=== PATIENT | male | born 1945 | race Two or more races ===

== ENCOUNTER 2023-08-11 21:34 | Observation (INO) | payer MEDICARE, OTHER, SELFPAY ==
[2023-08-11 16:52] VITALS: BP 151/71
[2023-08-11 16:56] VITALS: BP 151/71; BMI 29.7
[2023-08-11 17:00] VITALS: BP 144/69
[2023-08-11 17:19] LABS: % Basophils 0.6 % (0-2); % Eosinophils 1.8 % (0-6); % Immature Granulocytes 0.4 % (0-0.5); % Lymphocytes 18.3 % (20.5-51.1); % Monocytes 9.4 % (1.7-9.3); % Neutrophils 69.5 % (42.2-75.2); Absolute Basophils 0.1 10^3/uL (0-0.2); Absolute Eosinophils 0.2 10^3/uL (0-0.7); Absolute Lymphocytes 1.5 10^3/uL (1.2-3.4); Absolute Monocytes 0.8 10^3/uL (0.1-0.6); Absolute Neutrophils 5.8 10^3/uL (1.4-6.5); Hematocrit 42.7 % (39.0-52.0); Hemoglobin 14.3 g/dL (13.0-18.0); Mean Corp Hgb Conc. 33.5 g/dL (33.0-37.0); Mean Corpuscular Hgb 31.4 pg (27.0-31.0); Mean Corpuscular Volume 93.6 fL (80.0-94.0); Nucleated Red Blood Cells % 0 % (-); Platelet Count 272 10^3/uL (130-400); Red Blood Cell Count 4.56 10^6/uL (4.70-6.10); Red Cell Dist. Width 12.5 % (11.5-14.5); White Blood Cell Count 8.3 10^3/uL (4.8-10.8)
[2023-08-11 17:28] LABS: ALT (SGPT) 21 U/L (0-50); AST (SGOT) 25 U/L (17-59); Albumin 4.4 g/dl (3.5-5.0); Alkaline Phosphatase 79 U/L (38-126); Blood Urea Nitrogen 20 mg/dl (9-20); Calcium 10.3 mg/dl (8.4-10.2); Carbon Dioxide 26 mmol/L (22-30); Chloride 103 mmol/L (98-107); Estimated Creatinine Clearance 49 ml/min; Glucose 134 mg/dl (70-99); Potassium 3.7 mmol/L (3.5-5.1); Sodium 136 mmol/L (135-145); Total Bilirubin 1.7 mg/dl (0.2-1.3); eGFR 56.58
[2023-08-11 17:40] LABS: Troponin I < 0.012 ng/ml
[2023-08-11] MEDS: BENADRYL 25 MG IV (17:48)
[2023-08-11] MEDS: SOLU-CORTEF 200 MG IV (17:49)
--- NOTE | 2023-08-11 17:52 | ED.CVA ---
History of Present Illness
General
Chief Complaint: CVA/TIA Symptoms
Time Seen by Provider: 08/11/23 17:28
Onset of Stroke Symptoms
Onset of symptoms known: Yes
Date of onset of symptoms: 08/11/23
Time of onset of symptoms: 14:30
Travel History
Have you had any contact with someone who has COVID-19?: No
Do you have any symptoms of coronavirus? Fever > 100 degrees, chills, cough, shortness of breath, sore throat, loss of taste or smell, muscle aches, or headache?: No
History of Present Illness
History of Present Illness:
77 yo male w/ hx of CAD s/p ADARSH x 6, HTN, HLD, and multiple prior 'TIAs' presents via EMS for evaluation of an abrupt onset of stroke like symptoms developing at 1430 today. Spouse states that the pt was at home with friends, the friends noted that
he was not able to speak appropriately and seemed to be 'searching for the words'. The symptoms lasted approximately 2 hours before improving. Pt states 'I didn't know something was wrong'. Relays a history of multiple prior 'TIAs' however these
were not all evaluated medically. The most recent of which occurred approx 1 yr ago involving vision loss. He does take clopidogrel for cardiac disease. Currently asymptomatic
Review of Systems
Review of Systems
Allergies reviewed?: Yes
All Other Systems: ROS reviewed and negative except as documented in HPI and ROS
Phy Exam
Physical Exam
Physical Exam:
GEN: Well appearing, NAD, WDWN
HEENT: Oral mucosa moist, no scleral icterus, no nasal congestion
Cardiac: Regular rate
Lung: No respiratory distress, no tachypnea
MSK: No gross deformity or injuries
Skin: Good color, no pallor or jaundice, no rashes
Neuro: AO x3; CN II-XII grossly intact. BUE strength 5/5 in all cordoba, sensation intact and symmetric. BLE strength 5/5 in all cordoba, sensation intact and symmetric
Psych: Calm, cooperative
Course
Orders/Labs/Results
Orders:
Orders
08/11/23 16:58
Electrocardiogram (*1) Urgent
Reason for Study: Other
Other Reason for Exam: Possible Stroke
Cardiac Monitoring- Treatment ONCE
08/11/23 16:59
EKG- Treatment ONCE
08/11/23 17:04
Complete Blood Count/With Diff Urgent
Comprehensive Metabolic Panel Urgent
Troponin I Urgent
08/11/23 17:40
CT Head & Neck Angio W/wo IV Urgent
Comment:
Reason For Exam: TIA, aphasia
08/11/23 17:41
Diphenhydramine [Benadryl] 25 mg IV NOW STA
Hydrocortisone Sod Succinate [Solu-Cortef] 200 mg IV NOW STA
Abnormal Lab Results
08/11/23
17:04
RBC 4.56 L 10^6/uL
(4.70-6.10)
MCH 31.4 H pg
(27.0-31.0)
Absolute Monos (auto) 0.8 H 10^3/uL
(0.1-0.6)
Lymphocytes % 18.3 L %
(20.5-51.1)
Monocytes % 9.4 H %
(1.7-9.3)
Glucose 134 H mg/dl
(70-99)
Calcium 10.3 H mg/dl
(8.4-10.2)
Total Bilirubin 1.7 H mg/dl
(0.2-1.3)
08/11/23 17:04
08/11/23 17:04
Vital Signs
Initial and Last Documented VS:
Initial Vital Signs
BP
151/71
08/11/23 16:52
Last Documented Vital Signs
Temp Pulse Resp BP Pulse Ox
98.5 F 66 14 157/89 94
08/11/23 16:56 08/11/23 20:07 08/11/23 20:07 08/11/23 18:00 08/11/23 20:07
MDM/Problems Addressed
MDM/Problems Addressed:
77 yo male presenting with a transient episode of aphasia and confusion; certainly concerning that he has no recollection of the event. He has numerous cerebrovascular risk factors including PAF not on OAC, HTN, HLD. CTA shows no evidence for large
vessel occlusive disease, however small vessel disease is seen. Case d/w neurology, recommending admission for MRI. Pt does relay to me that he is extremely hesistant to get an MRI due to a past experience and claustrophobia. Nevertheless, he is
very high risk for recurrent CVA in the next 48 hrs to 7 days, thus is appropriate for admission
*Critical Care Note
Total Time (30-74mins, 75-104mins- exclusive of procedures): Not Applicable
ED Attending Note
-
Portions of this chart may have been created with voice recognition software.� Occasional wrong word or��sound alike� substitutions may have occurred due to the inherent limitations of voice recognition software.
Discharge Plan
Departure
Patient Disposition: Admit
Date of Disposition: 08/11/23
Time of Disposition: 20:52
Admit to: Telemetry
Presentation/result/management discussed w/ accepting MD/DO: Hospitalist
Discharge Problem:
Transient ischemic attack
Prescriptions:
No Action
famotidine 20 mg Tablet
20 mg PO HS
metoprolol succinate 25 mg Tablet Extended Release 24 Hr
37.5 mg PO HS
clopidogrel [Plavix] 75 mg Tablet
75 mg PO DAILY Qty: 0 0RF
aspirin 81 mg Tablet,Delayed Release (Dr/Ec)
81 mg PO HS
cholecalciferol (vitamin D3) 25 mcg (1,000 unit) Tablet
25 mcg PO DAILY
acetaminophen 500 mg tablet
1,000 mg PO QID PRN (Reason: mild pain)
olmesartan 5 mg tablet
5 mg PO HS
Referrals:
Georgette Omalley DO [Family Provider] -
Interventions
Interventions:
*Risk Screen - Suicide Last Done: 08/11/23 18:05
*Neglect/Abuse Screening Last Done: 08/11/23 18:05
ED- Fall Risk Assessment Last Done: 08/11/23 18:06
ED- Pulmonary Assessment Last Done: 08/11/23 17:28
ED- Neurological Assessment Last Done: 08/11/23 20:00
ED- Cardiac Assessment Last Done: 08/11/23 17:28
ED Swallowing Screen Last Done: 08/11/23 20:00
Discharge Date and Time
Print Language: GEORGIAN
[2023-08-11 18:00] VITALS: BP 157/89
--- NOTE | 2023-08-11 21:32 | HPS.HSE ---
Family Physician
-
Family Physician: Georgette Omalley
Chief Complaint
-
confusion
History of Present Illness
77-year-old male past medical history of CAD status post ADARSH x 6, paroxysmal atrial fibrillation, hyperlipidemia, hypertension, multiple prior TIAs, presenting for inability speak appropriately and searching for words at 2:30 PM today while spending
time with friends. Symptoms lasted 2 hours before improving. Patient was not aware what that something was wrong. Patient has had multiple prior TIAs before most recently 1 year ago involving vision loss. He has headache currently but denies any
vision loss, focal weakness, numbness or tingling or vertigo. Denies any chest pain or shortness of breath.
Patient states that he has a history of paroxysmal atrial fibrillation and has a loop recorder. He follows [facility].
He is a former smoker. He rarely drinks alcohol.
Medical History
Past Medical History
Past Medical History: Reports Other ( CAD status post ADARSH x 6, paroxysmal atrial fibrillation, hyperlipidemia, hypertension, multiple prior TIAs,)
Past Surgical History: Reports None
Social History
Tobacco: Former Smoker
Alcohol: Occasional
Drug: None
Family History
Family History: Not pertinent
Allergies / Home Medications
Allergies reflects when Allergies were last updated in [facility].
Home Medications with original date entered in [facility]
Allergy/Medication List:
Allergies
Allergy/AdvReac Type Severity Reaction Status Date / Time
amlodipine [From Norvasc] Allergy Unknown Verified 08/11/23 16:55
celecoxib [From Celebrex] Allergy Ankle Verified 08/11/23 16:55
Swelling
Iodinated Contrast Media Allergy Rash Verified 08/11/23 19:10
lisinopril Allergy Unknown Verified 08/11/23 16:55
[id number] Reductase Allergy Myalgias Verified 08/11/23 16:55
Inhibitor
IV contrast Allergy Rash Uncoded 08/11/23 17:47
Home Medications
famotidine 20 mg tablet 20 mg PO HS Gastrointestinal issue 09/17/21
metoprolol succinate 25 mg tablet,extended release 24 hr 37.5 mg PO HS 09/17/21
clopidogrel 75 mg tablet (Plavix) 75 mg PO DAILY Heart disease/condition #0 tabs 09/26/21
acetaminophen 500 mg tablet 1,000 mg PO QID PRN mild pain 08/11/23
aspirin 81 mg tablet,delayed release 81 mg PO HS 08/11/23
cholecalciferol (vitamin D3) 25 mcg (1,000 unit) tablet 25 mcg PO DAILY 08/11/23
olmesartan 5 mg tablet 5 mg PO HS 08/11/23
Review of Systems
-
History Source: Patient
A 12 point ROS was completed and negative except as noted: Yes
Constitutional: Reports No Symptoms
EENT: Reports No Symptoms
Respiratory: Reports No Symptoms
Cardiac: Reports No Symptoms
Abdomen/GI: Reports No Symptoms
: Reports No Symptoms
Musculoskeletal: Reports No Symptoms
Skin: Reports No Symptoms
Neurological: Reports See HPI
Endocrine: Reports No Symptoms
Hematologic/Lymphatic: Reports No Symptoms
Psych: Reports No Symptoms
Physical Exam
Vital Signs
Vital Signs
Temp Pulse Resp BP Pulse Ox
98.5 F 66 14 157/89 94
08/11/23 16:56 08/11/23 20:07 08/11/23 20:07 08/11/23 18:00 08/11/23 20:07
Physical Exam
General: Well Developed, Well Nourished and No Apparent Distress
HEENT: NormoCephalic, Moist mucous membranes and Atraumatic
Respiratory: Clear
Cardiac: S1/S2 and Regular Rhythm; No Murmur or Rub
GI: Soft, Non Tender, Non Distended and Normal Bowel Sounds; No Organomegaly
Rectal: Deferred by Provider
Musculoskeletal: No Clubbing, No Cyanosis and No Edema
Skin: No Rash
Neuro: Nonfocal/grossly intact
Laboratory Results
-
08/11/23 17:04
08/11/23 17:04
Laboratory Results
Total Bilirubin 1.7 mg/dl (0.2-1.3) H 08/11/23 17:04
AST 25 U/L (17-59) 08/11/23 17:04
ALT 21 U/L (0-50) 08/11/23 17:04
Alkaline Phosphatase 79 U/L (38-126) 08/11/23 17:04
Troponin I < 0.012 ng/ml 08/11/23 17:04
Data Reviewed
-
Lab Data: Labs Reviewed by me
Old Records: Reviewed
Impression/Plan
-
IMPRESSION:
PLAN:
# TIA
# History of multiple TIAs
-CTA head and neck shows no evidence of M1 or M2 occlusion, no focal stenosis
-Continue aspirin and Plavix
-Patient refusing MRI brain due to prior traumatic experience
-A1c and lipid panel
-Telemetry monitoring
-Neurology consulted
-Patient may require anticoagulation
History of paroxysmal atrial fibrillation, with loop recorder
-EKG shows sinus rhythm with first-degree AV block
-Continue metoprolol
CAD status post ADARSH x 6
-Continue aspirin and Plavix
Hyperlipidemia
Essential hypertension
-Continue olmesartan
Full code
DVT prophylaxis�SCDs
Regular diet
[2023-08-11] MEDS: PEPCID 20 MG PO (23:24)
[2023-08-11] MEDS: ASPIR LOW (ENTERIC COATED) 81 MG PO (23:24)
[2023-08-11] MEDS: BENICAR 5 MG PO (23:24)
[2023-08-11] MEDS: TOPROL XL 37.5 MG PO (23:24)
[2023-08-11 23:43] VITALS: BMI 29.7
[2023-08-11] MEDS: TYLENOL 1000 MG PO (23:47)
[2023-08-11 23:49] VITALS: BP 160/81; BMI 29.0
--- NOTE | 2023-08-12 00:01 | PTCARENOTE ---
Patient received from ED via stretcher. Patient ambulated into the room with assistance. Pt AAOx3, VSS. Patient NIH score of 0. Able to pass swallow screen. SCD's knee high applied. Patient given night time medications and PRN tylenol for chronic
back pain see APR. Call alba is within reach.
[2023-08-12 00:03] LABS: HDL Cholesterol 73 mg/dl; LDL Cholesterol, Calculated 138 mg/dl; Total Cholesterol 244 mg/dl (50-199); Triglyceride 167 mg/dl (10-149); Very Low Density Lipoprotein 33 mg/dl (0-30)
[2023-08-12 03:44] VITALS: BP 130/71
--- NOTE | 2023-08-12 05:28 | DOWNTIME ---
There was a [employer] Downtime on 08/12/2023 from 0100 to 08/12/2023 at 0337. Downtime documentation of patient's care, including medication administrations, has been reconciled in the electronic record per guidelines. Refer to the
patient's paper chart under the miscellaneous tab to see printed paper medication records and downtime forms.
[2023-08-12 07:04] LABS: % Basophils 0.4 % (0-2); % Eosinophils 0.7 % (0-6); % Immature Granulocytes 0.2 % (0-0.5); % Lymphocytes 17.1 % (20.5-51.1); % Monocytes 8.8 % (1.7-9.3); % Neutrophils 72.8 % (42.2-75.2); Absolute Eosinophils 0.1 10^3/uL (0-0.7); Absolute Lymphocytes 1.4 10^3/uL (1.2-3.4); Absolute Monocytes 0.7 10^3/uL (0.1-0.6); Absolute Neutrophils 6.1 10^3/uL (1.4-6.5); Hematocrit 41.2 % (39.0-52.0); Hemoglobin 13.8 g/dL (13.0-18.0); Mean Corp Hgb Conc. 33.5 g/dL (33.0-37.0); Mean Corpuscular Hgb 31.3 pg (27.0-31.0); Mean Corpuscular Volume 93.4 fL (80.0-94.0); Mean Platelet Volume 9.2 fL (7.4-10.4); Nucleated Red Blood Cells % 0 % (-); Platelet Count 257 10^3/uL (130-400); Red Blood Cell Count 4.41 10^6/uL (4.70-6.10); Red Cell Dist. Width 12.3 % (11.5-14.5); White Blood Cell Count 8.3 10^3/uL (4.8-10.8)
[2023-08-12 07:07] VITALS: BP 139/73
[2023-08-12 07:24] LABS: ALT (SGPT) 18 U/L (0-50); AST (SGOT) 20 U/L (17-59); Alkaline Phosphatase 66 U/L (38-126); Blood Urea Nitrogen 16 mg/dl (9-20); Calcium 9.7 mg/dl (8.4-10.2); Carbon Dioxide 26 mmol/L (22-30); Chloride 102 mmol/L (98-107); Estimated Creatinine Clearance 58 ml/min; Glucose 132 mg/dl (70-99); Sodium 137 mmol/L (135-145); Total Bilirubin 1.8 mg/dl (0.2-1.3); Total Protein 6.4 g/dl (6.3-8.2); eGFR > 60.00
[2023-08-12] MEDS: TYLENOL 1000 MG PO (08:02)
[2023-08-12] MEDS: PLAVIX 75 MG PO (08:03)
[2023-08-12] MEDS: VITAMIN D3 (cholecalciferol) 25 MCG PO (08:03)
--- NOTE | 2023-08-12 08:12 | CON.NEURO4 ---
Addendum entered and electronically signed by Garfield Ervin MD 08/12/23 15:10:
I saw and evaluated the patient I reviewed the note by Frances Leone agree with the findings the following comments:
77-year-old male with a past medical history of coronary artery disease status post multiple stents, previous events concerning for TIA over the past couple of years, hypertension, possibly paroxysmal atrial fibrillation presented to hospital with
episode of confusion and speech abnormality was noticed by his grandson. Abnormalities in speech and confusion completely resolved at this point duration was a bit long-lasting seemingly around 3 to 4 hours. Patient feels completely back to normal
at this time not noticing any confusion or speech difficulty.
One of the episodes of TIA previously had been right whole body numbness.
He has been on aspirin and clopidogrel for a long time now he says he has had an implanted cardiac Linq monitor but not entirely sure whether or not A-fib was ever found in the past.
No recent episodes of right or left hemibody weakness or paresthesia or unilateral vision loss.
Neurologic examination unremarkable
CTA head and neck reviewed there is very minor carotid calcific plaques on the right carotid bifurcation and very minor left carotid stenosis less than 50% on the left ICA no intracranial occlusions on the MCA [employer]ING [employer] basilar or vertebral arteries.
No atrial fibrillation on cardiac telemetry thus far here
Assessment:
Highly suspicious for TIA given multiple vascular risk factors and we are getting history from the patient suggestive of some degree of atrial fibrillation history. Discussed my thoughts with the patient that given the high concern for underlying
paroxysmal atrial fibrillation I do think would be best to initiate oral anticoagulation given the potential risk of ischemic stroke in the future.
Recommendations
-Would stop clopidogrel
-Continue aspirin 81 mg daily
-Initiate anticoagulation today could use apixaban or rivaroxaban either acceptable
-Discussed with patient that he needs to reach out to his cardiology physician about this
-Discussed signs and symptoms of stroke
-Low vitamin B12, start PO
-Patient not able to tolerate MRI and I do not feel be essential in this scenario we will obtain vessel imaging of his carotids which is essential in CT head noncontrast not showing abnormality
-No further workup or monitoring felt necessary at this point we will sign off call with questions or concerns
Original Note:
Documented by User: Frances Lopez NP 08/12/23 13:15
Consultation - Neurology 4
-
CONSULTING PHYSICIAN: Etta Ervin MD
REFERRING PHYSICIAN: Hospitalists/Dr. Mon
DICTATED BY: HEIKE Miller
DATE/TIME OF REQUEST: 08/11/23
DATE/TIME OF CONSULTATION: 08/12/23
Reason for Consultation: TIA
History of Present Illness:
This is a 77-year-old left-handed male who has presented to the hospital on 08/11/23 with report of speech difficulty and confusion. Patient reports have several 'TIAs' in the past. His first episode was over 5 years ago. He was home alone doing
yard work and reports that he became light-headed and had a pins and needles sensation which he cannot recall the location of this. After about 2 hours he felt back to his baseline and was not evaluated by a medical professional at that time. The
second episode was 5 years ago and consisted of a pins and needles sensation in his entire right arm, right face, and right tongue. This lasted about 3 hours before resolving. He was evaluate at [facility] ER at that time and reports his CT
head/CTA head/neck were negative, he was not given thrombolytic. The third episode was about one year ago, he was home alone again and suddenly developed whole body weakness and he couldn't read what a large digital clock said, he reports his vision
was distorted. This lasted about 4 hours before resolving completely and he refused to go to the ER for evaluation.
Yesterday (08/11/23), he reports he felt in his usual state. He has been staying at his daughter's house watching her dogs while she is away. At 1430 he was talking to his grandson, and his grandson told him he couldn't understand what he was
saying. The patient reports that he could understand what people were saying to him, and his speech felt like it was coming out fine, it just didn't sound right. This did not resolve, prompting his family to call 911. On arrival to the ER about 2
hours later, patient reports being back to his baseline. CTA head/neck was obtained and is negative for LVO, demonstrates chronic small vessel disease. He was not a candidate for TNK/IAT due to complete resolution of symptoms. He reports having a
7/10 generalized headache yesterday. He has chronic neck/lower back pain and reports it is not uncommon for him to have a headache. He reports taking Tylenol 1000mg 4-5 times per day for his back pain with minimal relief. He has chronic pins and
needles in bilateral feet. He was on gabapentin at some point for his neuropathy discomfort but it didn't improve his symptoms and he stopped taking it. He gets epidural spine injections and reports these help somewhat and resolved the sensation
that he is walking on golf balls. He denies any dizziness, vision changes, swallowing difficulty, new numbness, focal weakness, nausea, chest pain, palpitations, and shortness of breath.
He is taking aspirin 81mg and Plavix 75mg daily due to extensive cardiovascular disease. He reports that he has been told he's had paroxysmal Afib in the past but cannot provide more details about this. He is followed by Cardiology Dr. Eric Garcia
in [place], [place] associated with [facility]. He recently had a loop recorder placed to monitor for Afib. He got a phone call two days ago from his Cardiology office saying the loop recorder hadn't downloaded anything in the past week, and
he realized he has been sleeping away from the docking station for the past week while dog sitting. He reports trying multiple statins in the past and experienced myalgias or muscle weakness from all of them. He also thinks he was on Zetia
previously, he can't remember if he had side effects from this or not. He was on a PCSK9 inhibitor previously as well but his insurance stopped covering it and he couldn't afford it anymore.
Past Medical History: CAD, HTN, HLD, paroxysmal Afib (not on OAC), multiple TIAs, cervical stenosis, lumbar stenosis/radiculopathy, osteoarthritis, DJD, left hip fracture, left knee meniscus tear, GERD, urethral stricture, peripheral neuropathy
Surgical History: 6 cardiac stents, L THR, C2-C6 laminectomy, L3-S1 laminectomy, reports 5 total spine surgeries
Family History: Mother- Parkinson's disease.
Social History: Former smoker. Rare alcohol. Denies illicit drug use.
Allergies: Amlodipine, celecoxib, iodinated contrast, lisinopril, statins.
Home Medications: See below.
Review of Symptoms:
Patient denies any fever, chest pain, shortness of breath, GI or symptoms.
�Per the HPI.�All systems are reviewed negative except above.
Physical Exam:
The patient is afebrile, abdomen is nondistended, breathing is unlabored, skin is warm and dry, no edema.
NIH Stroke Scale:
I performed the NIH stroke scale on the patient on 08/12/23 at 0845. The patient scored 0 points on the NIH stroke scale assessment, which were assigned as follows: See below.
Neurologic Examination:
The patient is awake, alert and oriented x 3. He is able to follow commands and answer questions appropriately. There is no aphasia or dysarthria. On cranial nerve assessment, pupils are 3 mm bilateral, round and reactive to light and
accommodation. Visual rodriguez are full. Extraocular movements are intact. Facial sensations are intact and bilaterally symmetrical, there is no facial asymmetry. Hearing is intact bilaterally to normal conversation volume. Tongue palate and uvula are
midline. Sternocleidomastoid strengths are full bilaterally. Motor strengths are 5/5 bilateral upper and lower extremities on medical research [place] scale. There is no drift or involuntary movement noted. Deep tendon reflexes are 1+ bilateral
upper and lower extremities and Babinski is absent bilaterally. Sensation of temperature is severely diminished in bilateral lower extremities, vibration is mildly decreased. There was no extinction noted on double simultaneous stimulation.
Coordination is intact by finger to nose bilaterally.
Lab Results: See below.
Neuro Imaging:
1. CTA head/neck 08/11/23: No evidence of M1 nor M2 occlusion. No focal stenosis. Mild acute bilateral sphenoid sinusitis. Mild periventricular small vessel ischemic disease. Mild atrophy. Multilevel cervical spine degenerative disc disease.
Differentials for the patient's presentation include:
1. TIA or small ischemic stroke likely producing transient speech difficulty.
2. Question of paroxysmal Afib, not on anticoagulation.
3. Vitamin B12 deficiency.
Patient has the following risk factors for their symptoms: paroxysmal Afib not on OAC, HTN, HLD, age
IV Tenecteplase/IAT candidacy: Not a candidate due to resolution of symptoms, no LVO.
Recommendations:
-Patient refuses MRI imaging due to traumatic experience getting stuck in an MRI machine previously.
-Recommend initiating anticoagulation due to paroxysmal Afib for stroke prevention. Would continue aspirin 81mg daily but discontinue Plavix when anticoagulation is initiated.
-Permissive hypertension SBP<220, DBP<120 until 1430 today, then goal normotension.
-Monitor on telemetry, patient has implanted Loop recorder.
-LDL goal <70. LDL is 138. Patient intolerant to statins and Zetia. Instructed to discuss PCSK9 options again with his Assistant Teaching Professor.
-Goal normoglycemia, hbA1c is pending.
-B12 level is low at 183. Initiate cyanocobalamin 1000mcg PO daily.
-NIHSS and neurological checks per unit guidelines.
-Provide patient with a stroke education packet.
-DVT prophylaxis.
-Will attempt to contact patient's Assistant Teaching Professor Dr. Garcia to discuss plan of care.
Discussed patient care with: Dr. Ervin, the patient
Vital Signs and Labs
-
Vital Signs and Labs:
Vital Signs
Temp Pulse Resp BP Pulse Ox
97.6 F 61 20 139/73 93
08/12/23 07:07 08/12/23 07:07 08/12/23 07:07 08/12/23 07:07 08/12/23 08:00
Lab Results
08/12/23 06:35
08/12/23 06:35
Sodium 137 mmol/L (135-145) 08/12/23 06:35
Potassium 4.0 mmol/L (3.5-5.1) 08/12/23 06:35
BUN 16 mg/dl (9-20) 08/12/23 06:35
Glucose 132 mg/dl (70-99) H 08/12/23 06:35
Calcium 9.7 mg/dl (8.4-10.2) 08/12/23 06:35
LDL Cholesterol, Calc 138 mg/dl 08/11/23 23:15
Medications
-
Active Medications
Generic Name Dose Route Start Last Admin
Trade Name Freq PRN Reason Stop Dose Admin
Acetaminophen 1,000 mg 08/11/23 23:01 08/12/23 08:02
Acetaminophen 500 Mg Tablet PO 09/08/23 23:00 1,000 mg
QID PRN Administration
mild pain
Aspirin 81 mg 08/11/23 23:01 08/11/23 23:24
Aspirin 81 Mg (Enteric Coated) Tablet PO 09/08/23 23:00 81 mg
HS KILO Administration
Cholecalciferol 25 mcg 08/12/23 08:00 08/12/23 08:03
Cholecalciferol (Vitamin D3) 25 Mcg Tablet (1,000 Units) PO 09/09/23 07:59 25 mcg
DAILY KILO Administration
Clopidogrel Bisulfate 75 mg 08/12/23 08:00 08/12/23 08:03
Clopidogrel 75 Mg Tablet PO 09/09/23 07:59 75 mg
DAILY KILO Administration
Famotidine 20 mg 08/11/23 23:01 08/11/23 23:24
Famotidine 20 Mg Tablet PO 09/08/23 23:00 20 mg
HS KILO Administration
Metoprolol Succinate 37.5 mg 08/11/23 23:01 08/11/23 23:24
Metoprolol 25 Mg Extended Release Tablet PO 09/08/23 23:00 37.5 mg
HS KILO Administration
Olmesartan 5 mg 08/11/23 23:00 08/11/23 23:24
Olmesartan 20 Mg Tablet PO 09/08/23 22:59 5 mg
HS KILO Administration
Sodium Chloride 0 flush 08/11/23 23:00
Sodium Chloride 0.9% (Flush) Syringe IV 09/08/23 22:59
PER PROTOCOL KILO
Home Medications
�Medication �Instructions �Recorded
famotidine 20 mg tablet 20 mg PO HS Gastrointestinal issue 09/17/21
metoprolol succinate 25 mg 37.5 mg PO HS Blood Pressure 09/17/21
tablet,extended release 24 hr
clopidogrel 75 mg tablet (Plavix) 75 mg PO DAILY Heart 09/26/21
disease/condition #0 tabs
acetaminophen 500 mg tablet 1,000 mg PO QID PRN mild pain 08/11/23
aspirin 81 mg tablet,delayed 81 mg PO HS Blood Clot 08/11/23
release Prevention/Tx
cholecalciferol (vitamin D3) 25 25 mcg PO DAILY Supplement 08/11/23
mcg (1,000 unit) tablet
olmesartan 5 mg tablet 5 mg PO HS Blood Pressure 08/11/23
NIH Stroke Score
Subsequent NIH Scale
Date of Subsequent NIH Scale: 08/12/23
Time of Subsequent NIH Scale: 08:45
NIH Stroke Score
Level of Consciousness: 0 - Alert
LOC Questions: 0-Answers both correctly
LOC Commands: 0-Performs both correctly
Best Horizontal Gaze: 0-Normal
Visual Rodriguez: 0=Normal, no visual loss
Facial Palsy: 0=Normal, symmetrical
Motor - Right Arm: 0=No drift 10 seconds
Motor - Left Arm: 0=No drift 10 seconds
Motor - Right Le-No drift 5 seconds
Motor - Left Le-No drift 5 seconds
Limb Ataxia: 0-Absent
Sensation: 0-Normal
Best Language: 0-No aphasia
Dysarthria: 0-Normal
Extinction and Inattention: 0-No abnormality
Total Score:: 0
Modified Stark (mRS) Score
Modified Stark Scale (mRS): No symptoms
Score: 0

Documented by User: Garfield Ervin MD 08/12/23 15:06
NIH Stroke Score
NIH Stroke Score
Total Score:: 0
Modified Stark (mRS) Score
Score: 0
--- NOTE | 2023-08-12 08:27 | W.PN.HOSP.TC ---
Addendum entered and electronically signed by Nidia Bundy MD 08/12/23 20:03:
Patient seen and examined independently--agree with plan as set forth by Dr. Beyer
GENERAL: well developed, well nourished, male in no apparent distress
HEENT: NC/AT
HEART: regular rate and rhythm, +S1, +S2
LUNGS : clear to auscultation bilaterally
ABDOM: soft, nontender, nondistended, + bowel sounds
EXT: no cyanosis, clubbing, or edema
NEUROLOGIC: nonfocal and grossly intact
TIA (Prior history of multiple TIAs) presenting as word finding issues--resolved after 2 hours--CTA head and neck shows no evidence of M1 or M2 occlusion, no focal stenosis--was on asa/plavix--apprec neuro--d/c plavix and start Eliquis (paroxysmal
afib history)--Patient refused MRI brain due to prior traumatic experience--A1c and lipid panel- cholesterol was 244, triglycerides 167, LDL 138
History of paroxysmal atrial fibrillation, with loop recorder--EKG shows sinus rhythm with first-degree AV block--Continue metoprolol
CAD status post ADARSH x 6--Continue aspirin, Plavix d/c and Eliquis started
Hyperlipidemia--lipid panel--cholesterol was 244, triglycerides 167, LDL 138--pt said he has tried all of the statins and was intolerant, he even tried Repatha injections--Rosuvastatin 40 mg, once daily at bedtime--script given to patient for
starting as outpt
Essential hypertension--Continue olmesartan
vitamin B12 deficiency--B12�183--Patient reports having tingling and numbness from his previous back surgeries/laminectomies--replete
DVT prophylaxis--SCDs
Original Note:
Today's Communication/Plan
-
.
Assessment / Plan
Assessment / Plan
Assessment:
79-year-old male, with past medical history significant for CAD s/p ADARSH X 6, paroxysmal A-fib on loop recorder, essential hypertension, hyperlipidemia, history of prior multiple TIAs admitted for difficulty finding words/aphasia noticed by his
grandson which happened for approximately 2 hours before he improved. Patient denies any vision loss, focal weakness, numbness/tingling/vertigo. Patient denies chest pain, shortness of breath, palpitations.CTA head and neck -very minor carotid
calcific plaques on the right carotid bifurcation and very minor left carotid stenosis less than 50% on the left ICA no intracranial occlusions on the MCA ROOF SHINGLER basilar or vertebral arteries. No atrial fibrillation on cardiac telemetry . Neurology
consulted. Continued on his home aspirin/Plavix, metoprolol, olmesartan. His total cholesterol was 244, triglycerides 167, LDL 138. His vitamin B12 183.
Impression
TIA
History of paroxysmal A-fib
CAD s/p ADARSH X 6
Hyperlipidemia
Essential hypertension
Low vitamin B12
Plan
# TIA
Prior history of multiple TIAs
CTA head and neck shows no evidence of M1 or M2 occlusion, no focal stenosis
aspirin and Plavix continued
Patient refusing MRI brain due to prior traumatic experience
A1c and lipid panel- cholesterol was 244, triglycerides 167, LDL 138.
Telemetry monitoring
Neurology consulted
Neurology recommended continuing aspirin, stopping Plavix, anticoagulation with Eliquis.
#History of paroxysmal atrial fibrillation, with loop recorder
EKG shows sinus rhythm with first-degree AV block
Continue metoprolol
#CAD status post ADARSH x 6
-Continue aspirin and Plavix
#Hyperlipidemia
lipid panel- cholesterol was 244, triglycerides 167, LDL 138.
Rosuvastatin 40 mg, once daily at bedtime.
#Essential hypertension
Continue olmesartan
#Low vitamin B12
B12�183
Patient reports having tingling and numbness from his previous back surgeries/laminectomies.
Supplement
#DVT prophylaxis
SCDs
Anticipated Discharge: Today
Subjective/Interval History
-
Date of Service: August 12, 2023
Objective Data
-
Labs:
Laboratory Results
08/12/23
06:35
WBC 8.3
Hgb 13.8
Hct 41.2
Plt Count 257
Sodium 137
Potassium 4.0
Chloride 102
Carbon Dioxide 26
BUN 16
Creatinine 1.1
Glucose 132 H
Calcium 9.7
Total Bilirubin 1.8 H
AST 20
ALT 18
Alkaline Phosphatase 66
Vital Signs:
Vital Signs
Temp Pulse Resp BP Pulse Ox
97.6 F 61 20 139/73 93
08/12/23 07:07 08/12/23 07:07 08/12/23 07:07 08/12/23 07:07 08/12/23 07:07
I&O
08/11/23 08/12/23 08/13/23
06:59 06:59 06:59
Intake Total 480 / 480
Output Total 425 / 425
Balance 55 / 55
Physical Exam
-
General: Well Developed, Well Nourished and No Apparent Distress
HEENT: Normocephalic and Atraumatic
Respiratory: Clear to Auscultation
Cardiac: S1/S2
GI: Soft, Nontender, Nondistended and Normal Bowel Sounds
Skin: Warm and Dry
Neuro: Awake, Alert, Oriented, AO x 3, No Motor Deficits, Nonfocal/Grossly Intact and No Sensory Deficits
[2023-08-12 10:13] LABS: TSH Reflex To Free T4 0.96 uIU/ml (0.47-4.68)
[2023-08-12 10:48] LABS: Folate 10.1 ng/ml (2.76-20); Vitamin B12 183 pg/ml (239-931)
[2023-08-12 11:25] VITALS: BP 120/68
--- NOTE | 2023-08-12 12:29 | CM ---
Patient seen at bedside. Patient states that he lives with his in a one story home with no current DME needs; Patient has had hip surgery and had walker at that time. Patient PCP is Dr. Omalley and he uses the [facility] in [place]. Patient
states that he understands OBS/DOMINGO status but wanted to review form with . CM left copies of DOMINGO form and will follow up with patient. Patient plan is home with and pending PT/OT recommendations. CM will continue to follow for discharge
planning needs
Plan; home with VN vs home with no needs.
[2023-08-12 13:47] LABS: Glycohemoglobin (HgbA1c) 6.7 % (4.0-5.6)
[2023-08-12] MEDS: VITAMIN B-12 1000 MCG PO (14:27)
--- NOTE | 2023-08-12 14:29 | CM ---
Addendum entered by Sarah Varela 08/12/23 15:08:
cost for Eliquis is 47$ for 30 day supply. VM left for to review OBS/DOMINGO form as patient does not have his glasses. CM will continue to follow for discharge planning needs.
Original Note:
Patient seen at bedside with Resident and physician. Patient for discharge home with no needs anticipated. CM will continue to follow for discharge planning needs. Patient to review OBS/DOMINGO form with his and sign form.
Plan; home with no needs.
[2023-08-12 15:50] VITALS: BP 120/60
--- NOTE | 2023-08-12 19:48 | W.DCSUMMARY ---
Addendum entered and electronically signed by Nidia Bundy MD 08/12/23 20:06:
Read fully and agree with discharge plan as described by Dr. Beyer.
Nothing further to add.
Original Note:
Discharge Summary
Discharge Data
Date of Admission: 08/11/23
Date of Discharge: 08/12/23
-
Pending Results: No
Hospital Course
Primary care physician : Dr.Carrie Anita Omalley
Principal Discharge diagnosis : TIA
Chronic Discharge diagnosis : CAD s/p drug-eluting stent X6. Paroxysmal A-fib on loop recorder, essential hypertension, history of multiple TIAs.
Hospital Course : 79-year-old male, with past medical history significant for CAD s/p ADARSH X 6, paroxysmal A-fib on loop recorder, essential hypertension, hyperlipidemia, history of prior multiple TIAs admitted for difficulty finding words/aphasia
noticed by his grandson which happened for approximately 2 hours before he improved. Patient denies any vision loss, focal weakness, numbness/tingling/vertigo. Patient denies chest pain, shortness of breath, palpitations.CTA head and neck -very
minor carotid calcific plaques on the right carotid bifurcation and very minor left carotid stenosis less than 50% on the left ICA no intracranial occlusions on the MCA [employer]IM[employer] basilar or vertebral arteries. No atrial fibrillation on cardiac telemetry .
Neurology consulted. Continued on his home aspirin/Plavix, metoprolol, olmesartan. His total cholesterol was 244, triglycerides 167, LDL 138. His vitamin B12 183. Vitamin B12 supplemented. Neurology has recommended MRI, but patient declined.
PT/OT evaluation�recommended home with assistance upon discharge. Patient was clinically stable to be discharged. He is continued on aspirin, Plavix discontinued, Eliquis was started upon discharge. Patient was advised to start a high intensity
statin, but he did not want to take it at the same time when he starts taking Eliquis as he would not know if he has any side effects with either of the medications. So he is given a paper prescription for rosuvastatin 40 mg, once daily at bedtime.
Recommended cardiology follow-up.
Discharge Plan
-
Patient Disposition: Home (Routine Discharge)
Discharge Diagnosis/Procedures: TIA, history of paroxysmal A-fib on loop, CAD s/p DESx 6, hyperlipidemia, hypertension
Condition: Good
Diet: Low Cholesterol and Low Sodium
Activity: As tolerated
Driving Restrictions: As prior to admission
Bathing Restrictions: None
Referrals:
Georgette Omalley DO [Family Provider] - in less than 1 week
Prescriptions:
New
Eliquis 5 mg tablet
5 mg PO BID Qty: 60 0RF
mecobalamin (vitamin B12) [B12 Active] 1,000 mcg tablet,chewable
1,000 mcg PO DAILY Qty: 60 0RF
Continued
famotidine 20 mg Tablet
20 mg PO HS
metoprolol succinate 25 mg Tablet Extended Release 24 Hr
37.5 mg PO HS
aspirin 81 mg Tablet,Delayed Release (Dr/Ec)
81 mg PO HS
cholecalciferol (vitamin D3) 25 mcg (1,000 unit) Tablet
25 mcg PO DAILY
acetaminophen 500 mg tablet
1,000 mg PO QID PRN (Reason: mild pain)
olmesartan 5 mg tablet
5 mg PO HS
Discontinued
clopidogrel [Plavix] 75 mg Tablet
75 mg PO DAILY Qty: 0 0RF
Discharge Orders:
Discharge Patient (As Directed); Ordered 08/12/23
Ordered By: Alda Beyer
Discharge Date and Time
Discharge Date/Time: 08/12/23 15:58
Print Language: VIET[place]ESE
== END 2023-08-12 15:58 | disposition home or self-care (01) ==
LOC: 4 EAST ACU 21:34
PROVIDERS: Student in an Organized Health Care Education/Training Program; ADMITTING PHYSICIAN Hospitalist; ATTENDING PHYSICIAN Internal Medicine; EMERGENCY PHYSICIAN Emergency Medicine; FAMILY PHYSICIAN Family Medicine; OTHER PHYSICIAN Student in an Organized Health Care Education/Training Program
DX: G45.9 Transient cerebral ischemic attack, unspecified (principal); R47.01 Aphasia; I25.10 Atherosclerotic heart disease of native coronary artery without angina pectoris; I48.0 Paroxysmal atrial fibrillation; R41.0 Disorientation, unspecified; I10 Essential (primary) hypertension; M50.30 Other cervical disc degeneration, unspecified cervical region; J32.3 Chronic sphenoidal sinusitis; E78.5 Hyperlipidemia, unspecified; Z86.73 Personal history of transient ischemic attack (TIA), and cerebral infarction without residual deficits; Z79.02 Long term (current) use of antithrombotics/antiplatelets; Z95.5 Presence of coronary angioplasty implant and graft; Z79.82 Long term (current) use of aspirin; Z87.891 Personal history of nicotine dependence; Z88.8 Allergy status to other drugs, medicaments and biological substances; Z88.6 Allergy status to analgesic agent; Z91.041 Radiographic dye allergy status
CPT/HCPCS: 70496; 70498; 80053; 80061; 82607; 82728; 82746; 83036; 84443; 84484; 85025; 93005; 96374; 96375; 99285; G0378; Q9967